=== PATIENT | female | born 1965 | race Caucasian/White ===

== ENCOUNTER 2021-06-25 10:47 | Emergency (ER) | payer MEDICAID ==
[~2021-06-25] VITALS: Ht 162.6 cm; Wt 75.0 kg
[2021-06-25 11:35] VITALS: BP 137/77
--- NOTE | 2021-06-25 12:02 | NUR ---
BACK FROM CT VIA WHEELCHAIR AT THIS TIME.
--- NOTE | 2021-06-25 12:02 | NUR ---
1139 I have reviewed and agree with all interventions, assessments performed and documented by ROSANA DUTTA.
[2021-06-25] MEDS ORDERED: ibuprofen tablet 400 MG TABLET PO ONE (13:05)
[2021-06-25] MEDS ORDERED: proCHLORperazine 10 MG/2 ml inj IM ONE (13:05)
[2021-06-25] MEDS ORDERED: diphenhydrAMINE 25mg capsule PO ONE (13:05)
== END 2021-06-25 13:25 | disposition home or self-care (01) ==
LOC: ER 10:48
DX: S09.90XA Unspecified injury of head, initial encounter (principal); S19.9XXA Unspecified injury of neck, initial encounter; M54.9 Dorsalgia, unspecified; F15.90 Other stimulant use, unspecified, uncomplicated; Z56.0 Unemployment, unspecified; Z98.891 History of uterine scar from previous surgery; Z72.89 Other problems related to lifestyle; V89.2XXA Person injured in unspecified motor-vehicle accident, traffic, initial encounter; Y93.89 Activity, other specified; Y92.89 Other specified places as the place of occurrence of the external cause; Y99.8 Other external cause status
CPT/HCPCS: 70450; 72125; 96372; 99284; J0780; Q0163

== ENCOUNTER 2024-08-20 20:53 | Emergency (ER) | payer MEDICAID ==
[~2024-08-20] VITALS: Ht 160 cm; Wt 67.3 kg
[2024-08-20 20:57] VITALS: BP 142/98; PULSE 102; RESP 15; O2SAT 98
[2024-08-20] MEDS: HYDROcodone/acetaminophen 10/325mg tab PO STA (22:07)
[2024-08-20 22:20] LABS: BASOPHILS # (AUTO) 0.1 X10'3 (0-0.2); BASOPHILS % (AUTO) 1.1 % (0-1); EOSINOPHILS # (AUTO) 0.2 X10'3 (0-0.9); EOSINOPHILS % (AUTO) 2.4 % (0-6); HEMATOCRIT 37.7 % (35.0-45.0); HEMOGLOBIN 12.6 g/dl (12.0-16.0); MEAN CORPUSCULAR HEMOGLOBIN 30.3 PG (27.0-31.0); MEAN CORPUSCULAR HGB CONC 33.5 g/dL (33.0-36.5); MEAN CORPUSCULAR VOLUME 90.5 FL (78-98); MONOCYTES # (AUTO) 0.7 X10'3 (0-0.9); MONOCYTES % (AUTO) 8.6 % (2-12); NEUTROPHILS # (AUTO) 4.6 X10'3 (1.8-7.7); NEUTROPHILS % (AUTO) 60.9 % (42-75); PLATELET COUNT 341 X10'3 (140-440); RED BLOOD COUNT 4.17 X10'6 (4.20-5.60); RED CELL DISTRIBUTION WIDTH 13.3 % (11.5-14.5); WHITE BLOOD COUNT 7.6 X10'3 (4.5-11.0)
[2024-08-20 22:29] LABS: ALANINE AMINOTRANSFERASE 32 U/L (12-78); ALBUMIN/GLOBULIN RATIO 1.3 (1.1-1.5); ALKALINE PHOSPHATASE 116 IU/L (46-116); ANION GAP 3 (8-16); ASPARTATE AMINO TRANSFERASE 15 U/L (10-37); BILIRUBIN,TOTAL 0.3 MG/DL (0.1-1.0); BLOOD UREA NITROGEN 18 MG/DL (7-18); BUN/CREATININE RATIO 20.5 (10.0-20.0); CALCIUM 9.3 MG/DL (8.5-10.1); CHLORIDE 107 MMOL/L (99-107); CREATININE 0.88 MG/DL (0.40-0.90); GLUCOSE 126 MG/DL (70-104); POTASSIUM 5.2 MMOL/L (3.5-5.1); SODIUM 141 MMOL/L (135-145); TOTAL CARBON DIOXIDE 31.4 MMOL/L (24-32); TOTAL PROTEIN 7.1 G/DL (6.4-8.2); eCRCL 56 ML/MIN; eGFR 66 ML/MIN
--- NOTE | 2024-08-21 00:27 | Physician Documentation ---
History of Present Illness ~ Chief Complaint: Rib pain Stated Complaint: FALL Time Seen by MD: 21:23 Primary Medical Doctor: NONE HPI Patient is seen today with complaints of right-sided rib pain after she accidentally stepped in a hole and stumbled for and fell onto some concrete onto her right side. Patient states she does feel little short of breath. Patient has significant pain with inspiration. Patient denies any fevers or chills or abdominal pain or nausea, vomiting, diarrhea. Patient has no other concern or complaint at this time. Tetanus within 5 Years?: Yes Allergies: Coded Allergies: No Known Allergies (Unverified , 08/20/24) Active Prescriptions See Medication Reconciliation Form. Medication Reconciliation Scheduled PRN Hydrocodone Bit/Acetaminophen (Hydrocodone-Apap 10-325 Tablet), 1 TAB PO QID PRN PRN for pain Past Medical History Past Medical History: No Pertinent History Past Surgical History: Alcohol Use: Occasionally Drug Use: methamphetamine Lives with: Spouse, Family Lives In: Home Occupation: unemployed Review of Systems Constitutional: Denies: chills, fever, weakness Eyes: Denies: pain, blurred vision ENT: Denies: ear pain, nose pain, throat pain, mouth pain Respiratory: Denies: cough, shortness of breath Cardiovascular: Denies: chest pain, palpitations Gastrointestinal: Denies: abdominal pain, nausea, vomiting Genitourinary: Denies: burning, dysuria Female Genitalia: Denies: vaginal discharge, pelvic pain Neurological: Denies: headache, dizziness Musculoskeletal: Denies: pain, swelling Integumentary: Denies: rash, lesions Allergic/Immunologic: Denies: hives, itching Hematologic/Lymphatic: Denies: no symptoms reported Psychiatric: Denies: depression, anxiety Physical Exam Vital Signs: Temperature: 97.6, Source: Temporal, Heart Rate: 102, Respiratory Rate: 15, BP: 142/98, Pulse Oximetry: 98, Weight: 67.350 Physical Exam General: Awake and Alert, no acute distress. HEENT: Conjunctiva pink, Sclera clear, Mucus Membranes moist. Neck: Supple without masses and tenderness. Resp: Unlabored. Lungs clear to auscultation bilaterally. Heart: Regular Rate and rhythm, normal S1 and S2 without murmur, rub or gallop. Abdomen: Soft and non tender no organomegaly Musculoskeletal: Patient on exam does have bruising and ecchymosis of right ribcage as well as right lower abdomen superficially. Patient has tenderness to palpation over the right lower ribcage. I do not appreciate any step-offs. Extremities: No cyanosis,clubbing or edema. Skin: Warm and Dry. Progress Results/Orders Results/Orders Orders - ROSA VELA PAC Ct Chest (08/20/24 21:59) Completed Orders - ROSA VELA PAC Cbc/Diff (08/20/24 21:59) CMP (08/20/24 21:59) Ct Chest (08/20/24 21:59) Hydrocodone/Apap 10/325 ([place] 10/325mg (08/20/24 22:00) Medications Received in ER Medications (Trade) Dose Ordered Sig/Brent Route PRN Reason Start Time Stop Time Status Last Admin Dose Admin ([place] 10/325mg tab) 1 tab ONCE STAT PO 08/20/24 22:00 08/20/24 22:01 DC 08/20/24 22:07 1 TAB Vital Signs 08/20/24 20:57 Temp 97.6 Pulse 102 Resp 15 B/P (MAP) 142/98 Pulse Ox 98 Laboratory Tests Test 08/20/24 22:05 White Blood Count 7.6 Red Blood Count 4.17 L Hemoglobin 12.6 Hematocrit 37.7 Mean Corpuscular Volume 90.5 Mean Corpuscular Hemoglobin 30.3 Mean Corpuscular Hemoglobin Concent 33.5 Red Cell Distribution Width 13.3 Platelet Count 341 Mean Platelet Volume 8.0 Neutrophils (%) (Auto) 60.9 Lymphocytes (%) (Auto) 27.0 Monocytes (%) (Auto) 8.6 Eosinophils (%) (Auto) 2.4 Basophils (%) (Auto) 1.1 H Neutrophils # (Auto) 4.6 Lymphocytes # (Auto) 2.0 Monocytes # (Auto) 0.7 Eosinophils # (Auto) 0.2 Basophils # (Auto) 0.1 CBC Comment Sodium Level 141 Potassium Level 5.2 H Chloride Level 107 Carbon Dioxide Level 31.4 Anion Gap 3 L Blood Urea Nitrogen 18 Creatinine 0.88 Estimated GFR/1.73 m2 66 BUN/Creatinine Ratio 20.5 H Glucose Level 126 H Calcium Level 9.3 Total Bilirubin 0.3 Aspartate Amino Transf (AST/SGOT) 15 Alanine Aminotransferase (ALT/SGPT) 32 Alkaline Phosphatase 116 Total Protein 7.1 Albumin 4.0 Globulin 3.1 Albumin/Globulin Ratio 1.3 Chemistry Comments Medical Decision Making Findings Patient is seen today with complaints of right-sided rib pain after she accidentally stepped in a hole and stumbled for and fell onto some concrete onto her right side. Patient states she does feel little short of breath. Patient has significant pain with inspiration. Patient denies any fevers or chills or abdominal pain or nausea, vomiting, diarrhea. Patient has no other concern or complaint at this time. CT scan did show likely old fracture of right rib. I did not appreciate any sign of atelectasis or pneumonia or pleural effusion on CT scan. Patient states she is feeling much better now after one dose of [place] 10/325 mg in the ED tonight. Prescription of [place] 10/325 mg to be taken one tab every 6-8 hours as needed for pain sent to patient pharmacy. Patient will return to ED with any worsening, concerning or changing symptoms. Departure Disposition: 01 HOME / SELF CARE / HOMELESS Impression: Primary Impression: Rib pain Condition: Improved Discharge Instructions: Rib Contusion, Rib Fracture Additional Instructions: CT scan did show likely old fracture of right rib. I did not appreciate any sign of atelectasis or pneumonia or pleural effusion on CT scan. Patient states she is feeling much better now after one dose of [place] 10/325 mg in the ED tonight. Prescription of [place] 10/325 mg to be taken one tab every 6-8 hours as needed for pain sent to patient pharmacy. Patient will return to ED with any worsening, concerning or changing symptoms. Referrals: NO PRIMARY CARE PROVIDER (PCP) Prescriptions Hydrocodone Bit/Acetaminophen (Hydrocodone-Apap 10-325 Tablet) 10mg/325mg Tablet 1 TAB PO QID PRN PRN for pain for 5 Days, #20 TAB Prov: ROSA VELA 08/21/24 Signature Scribe Signature: No scribe Attestation: No scribe ROSA VELA PAC August 21, 2024 00:27
[2024-08-21] MEDS ORDERED: HYDR-3973 PO (00:28)
[2024-08-21 00:47] VITALS: TEMP 97.6
--- NOTE | 2024-08-21 00:50 | RADIOLOGY REPORT ---
Clinical History rib pain, SOB Comparison None Technique: All CT scans at this medical facility are performed using dose modulation techniques as appropriate t o a performed exam including the following: Automated exposure control was utilized; adjustment of th e mA and/or kV according to patient size; and use of iterative reconstruction technique. All CT studies are reported to the Dose Index Registry of the [employer]. Without Contrast Radiation Dose: CTDI (mGy): 14.68; DLP (mGy-cm): 579.94 PARVIZ LYNNE, [id number] FINDINGS: Limited study without IV or oral contrast. Thyroid: Limited evaluation. Mediastinum: Grossly within normal limits. Heart: Within normal limits. Aorta: Grossly within normal limits. Vasculature: No obvious abnormality seen. Lungs: scattered areas of bronchiectasis right lower and right middle lobes. Focal ill-defined hazy density in the right lower lobe, recommend follow-up. Pleura: Within normal limits. Bones: healing fracture of the right posterior eighth rib. Soft tissues: Within normal limits. Upper abdomen: possible mass in the left kidney. IMPRESSION: Limited noncontrast study. No gross evidence for acute intrathoracic findings. scattered bronchiectasis. Ill-defined density in the right lower lobe, recommend interval follow-up. Grossly unremarkable mediastinum. This report was electronically signed by Bob Lindsey MD on 08/21/2024 12:46:29 AM.
== END 2024-08-21 00:50 | disposition home or self-care (01) ==
LOC: ER 20:53
DX: F15.90 Other stimulant use, unspecified, uncomplicated (principal); Z56.0 Unemployment, unspecified; Z72.89 Other problems related to lifestyle; R07.81 Pleurodynia; W01.0XXA Fall on same level from slipping, tripping and stumbling without subsequent striking against object, initial encounter; Y93.89 Activity, other specified; Y92.89 Other specified places as the place of occurrence of the external cause; Y99.8 Other external cause status
CPT/HCPCS: 36415; 71250; 80053; 85025; 99284